=== PATIENT | male | born 1940 | race Caucasian/White ===

== ENCOUNTER 2018-02-25 08:29 | Inpatient (IN) | payer OTHER, MEDICARE ==
[2018-02-25] VITALS (7 sets, daily range): BP systolic 120–177; BP diastolic 70–553
[~2018-02-25] VITALS: Ht 182.9 cm; Wt 71.7 kg
--- NOTE | ~2018-02-25 | 2DMMODE ---
[facility] [employer] [place] [address] 2 D/M-MODE ECHOCARDIOGRAM Name: THOMAS LUDWIG Room #: 349-I [facility] IN [facility]#: [id number] Admission: 02/25/18 Attend Phys: Cyril Noriega Discharge: Date of : 36 Date of Service: 02/25/18 [facility] Report #: [id number] THIS REPORT FOR: //name// APPROVED REPORT Study performed: 02/25/2018 11:41:56 EXAM: Comprehensive 2D, Doppler, and color-flow Echocardiogram Patient Location: ER Room #: 1 Status: routine BSA: 1.89 HR: 87 bpm BP: 164/89 mmHg Other Information Study Quality: Good Indications COPD Dyspnea CAD ICD Echo Enhancing Agent Indication: Endocardial border delineation Agent(s) / Amount(s) Used: Optison 3 cc 2D Dimensions RVDd: 39.32 mm LVEF(%): 57.37 (>50%) IVSd: 9.61 (7-11mm) LVOT Diam: 24.92 (18-24mm) LVDd: 57.57 mm PWd: 11.28 (7-11mm) Ascending Ao: 31.71 (22-36mm) LVDs: 39.95 (25-40mm) Aortic Root: 28.77 mm IVC: 24.00 mm Alejandro's LVEF: 57.37 % Volumes Left Atrial Volume (Systole) Single Plane 4CH: 57.79 mL Single Plane 2CH: 59.51 mL LA ESV Index: 35.00 mL/m2 Aortic Valve AoV Peak Ciro.: 1.09 m/s AO Peak Gr.: 4.77 mmHg LVOT Max P.47 mmHg [facility] [address] [place] [address] 2 D/M-MODE ECHOCARDIOGRAM Name: THOMAS LUDWIG Room #: 349-I [facility]#: [id number] Admission: 02/25/18 Attend Phys: Cyril Noriega Discharge: Date of : 36 Date of Service: 02/25/18 1300 Report #: [id number] LVOT Max V: 0.79 m/s HAMZAH Vmax: 3.51 cm2 Mitral Valve E/A Ratio: 0.6 MV Decel. Time: 317.68 ms MV E Max Ciro.: 0.55 m/s MV A Ciro.: 0.92 m/s MV PHT: 92.13 ms IVRT: 175.32 ms Pulmonary Valve PV Peak Ciro.: 0.98 m/s PV Peak Gr.: 3.89 mmHg Pulmonary Vein P Vein S: 0.55 m/s P Vein A: 0.21 m/s P Vein D: 0.25 m/s P Vein A Dur.: 101.5 msec P Vein S/D Ratio: 2.20 Tricuspid Valve TR Peak Ciro.: 3.01 m/s TR Peak Gr.: 36.26 mmHg PA Pressure: 46.00 mmHg Left Ventricle Left ventricle is dilated. There is akinesis in the apical wall. There is normal left ventricular wall thickness. Left ventricular systolic function is moderately decreased. Distal septal and apical akinesis LVEF 35-40%. Grade I - abnormal relaxation pattern. Right Ventricle The right ventricle is normal size. The right ventricular systolic function is normal. Device lead is present in the right ventricle. Atria Left atrium is dilated. Right atrium is dilated. Device lead is present in the right atrium. Aortic Valve The aortic valve is normal in structure. No aortic regurgitation is present. There is no aortic valvular stenosis. Mitral Valve Mild mitral annular calcification Mild mitral regurgitation. No evidence of mitral valve stenosis. [facility] [address] [place] [address] 2 D/M-MODE ECHOCARDIOGRAM Name: VANITHOMAS Sourav Room #: 349-I [facility] IN ..#: [id number] Admission: 02/25/18 Attend Phys: Cyril Noriega Discharge: Date of : 36 Date of Service: 02/25/18 [facility] Report #: [id number] Tricuspid Valve The tricuspid valve is normal in structure. There is mild tricuspid regurgitation. Estimated PAP 45 mmHg. There is moderate pulmonary hypertension. Pulmonic Valve The pulmonary valve is normal in structure. Trace to mild pulmonic regurgitation. Great Vessels The aortic root is normal in size. IVC is dilated and collapses <50% with inspiration. Pericardium Trace pericardial effusion. <Conclusion> Left ventricular systolic function is moderately decreased. Distal septal and apical akinesis LVEF 35-40%. Mild diastolic dysfunction Both atria are mildly dilated. ICD wires in right heart The aortic valve is normal in structure. No aortic regurgitation or stenosis. Mild mitral annular calcification Mild mitral regurgitation. There is mild tricuspid regurgitation. Estimated pulmonary artery pressure of 45 mmHg. Trace pericardial effusion. <ELECTRONICALLY SIGNED> By: Bladimir Rocha MD, FACC 02/25/18 1300 1300 1300 Bladimir Rocha MD, FACC /INF
--- NOTE | ~2018-02-25 | EKG ---
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: nmd : 1940 Requested By: Flavio Garcia Order Number: [id number] MD: Bladimir Rocha Measurements Intervals [place] Rate: 79 P: 0 UT: 169 QRS: -88 QRSD: 143 T: 101 QT: 434 QTc: 498 Interpretive Statements Atrial-sensed ventricular-paced rhythm No further analysis attempted due to paced rhythm Baseline wander in lead(s) I,II,aVR Compared to ECG 09/29/2015 07:46:08 ventricular pacing is now present premature ventricular complexes are no longer present Electronically Signed On 02-26-2018 8:46:25 CDT by Bladimir Rocha [email or web address] <ELECTRONICALLY SIGNED> By: Bladimir Rocha MD, [facility] 02/26/18 0846 2 2 Bladimir Rocha MD, [facility] /EPI
[~2018-02-25 08:29] MED LIST: ASPIRIN EC81 M1 PO; AVELOX 400 MG400 MG PO; B COMPLEX1 EAC1 PO; BRILINTA90 MG PO; CARVEDILOL3.125 MG PO; COZAAR 25 MG TA25 M1 PO; HYDROCODONE-AP1 EAC6 PO; LIPITOR10 MG PO; LOPERAMIDE 2 MG2 M1 PO; LOVASTAT20 PO; MUCINEX TA600 MG/TA1 PO; PREDNISONE 5 MG5 M1 PO; PROAIR HFA8.5 GM INH; SPIRIVA INH; TAMSULOSIN HCL0.4 MG PO; TOPROL XL25 MG PO; VITAMIN B 12 PO; VITAMIN D1000 UNI1 PO; VITAMIN D31000 UNI2 PO
[2018-02-25 09:14] LABS: HEMATOCRIT 40.5 % (42.0-52.0); HEMOGLOBIN 13.6 gm/dL (14.0-18.0); MCH 31.9 pg (26.0-34.0); MCHC 33.5 g/dL (28.0-37.0); MCV 95.1 fL (80.0-100.0); RBC 4.25 mil/uL (4.50-6.00); WBC 6.7 thou/uL (4.0-11.0)
[2018-02-25 09:22] LABS: CALCIUM 8.6 mg/dL (8.5-10.1); CREATININE 1.6 mg/dL (0.7-1.3); POTASSIUM 4.7 mmol/L (3.5-5.1)
[2018-02-25 09:31] LABS: TROPONIN-I 0.07 ng/mL (<0.06)
[2018-02-25] MEDS ORDERED: LASIX 20 MG TAB20 MG PO (10:21)
[2018-02-26 04:00] VITALS: BP 138/74
[2018-02-26 08:05] VITALS: BP 137/67
[2018-02-26 12:00] VITALS: BP 96/48
[2018-02-26 12:47] LABS: ALBUMIN 3.5 g/dL (3.4-5.0); CALCIUM 8.5 mg/dL (8.5-10.1); CREATININE 1.5 mg/dL (0.7-1.3); POTASSIUM 4.7 mmol/L (3.5-5.1); TOTAL BILIRUBIN 0.6 mg/dL (<0.1-1.0)
[2018-02-26 16:47] VITALS: BP 125/75
[2018-02-26 19:04] VITALS: BP 116/59
[2018-02-27 03:45] VITALS: BP 142/78
[2018-02-27 05:56] LABS: MAGNESIUM 2.2 mg/dL (1.8-2.4); PHOSPHORUS 3.3 mg/dL (2.5-4.9)
[2018-02-27 07:25] VITALS: BP 154/76
[2018-02-27 18:35] VITALS: BP 129/60
[2018-02-27 20:00] VITALS: BP 129/63
[2018-02-28 04:00] VITALS: BP 155/75
[2018-02-28 08:04] VITALS: BP 150/77
[2018-02-28] MEDS ORDERED: LEVAQUIN 500 M500 M2 PO (08:52)
[2018-02-28] MEDS ORDERED: ELIQUIS5 MG PO (08:53)
[2018-02-28] MEDS ORDERED: CARVEDILOL25 MG PO (08:53)
[2018-02-28] MEDS ORDERED: PREDNISONE 5 MG5 M1 PO (08:53)
[2018-02-28 11:52] VITALS: BP 103/58
[2018-02-28 12:10] VITALS: BP 103/58
== END 2018-02-28 16:01 | disposition home or self-care (01) | DRG 189 ==
LOC: ER 08:29 → 3W 09:40 → EROBS 09:40 → 3W 11:37 → ENTRNSPT 02-28 15:41 → EDTRNSPTSTS 02-28 15:42 → 3W 02-28 16:01
PROVIDERS: Emergency Medicine; Hospitalist; Registered Nurse
DX: J96.01 Acute respiratory failure with hypoxia (principal); J44.1 Chronic obstructive pulmonary disease with (acute) exacerbation; J44.0 Chronic obstructive pulmonary disease with (acute) lower respiratory infection; I10 Essential (primary) hypertension; E78.5 Hyperlipidemia, unspecified; I25.5 Ischemic cardiomyopathy; I25.10 Atherosclerotic heart disease of native coronary artery without angina pectoris; I48.0 Paroxysmal atrial fibrillation; J20.9 Acute bronchitis, unspecified; Z91.041 Radiographic dye allergy status; Z91.013 Allergy to seafood; Z98.49 Cataract extraction status, unspecified eye; Z87.891 Personal history of nicotine dependence; Z79.82 Long term (current) use of aspirin; Z79.899 Other long term (current) drug therapy; Z86.73 Personal history of transient ischemic attack (TIA), and cerebral infarction without residual deficits; Z95.810 Presence of automatic (implantable) cardiac defibrillator
CPT/HCPCS: 10879

== ENCOUNTER 2018-03-20 13:15 | Emergency (ER) | payer OTHER, MEDICARE ==
[~2018-03-20] VITALS: Ht 180.3 cm; Wt 69.0 kg
[~2018-03-20 13:15] MED LIST changes: +CARVEDILOL25 MG PO; +ELIQUIS5 MG PO; +LASIX 20 MG TAB20 MG PO; +LEVAQUIN 500 M500 M2 PO
== END 2018-03-20 16:02 | disposition home or self-care (01) ==
LOC: ER 13:15
DX: R04.0 Epistaxis (principal); I63.9 Cerebral infarction, unspecified; F17.210 Nicotine dependence, cigarettes, uncomplicated; Z90.89 Acquired absence of other organs; Z88.8 Allergy status to other drugs, medicaments and biological substances; Z91.013 Allergy to seafood

== ENCOUNTER 2018-04-03 18:57 | Emergency (ER) | payer OTHER, MEDICARE ==
[~2018-04-03] VITALS: Ht 180.3 cm; Wt 68.0 kg
== END 2018-04-03 20:50 | disposition home or self-care (01) ==
LOC: ER 18:57
DX: R04.0 Epistaxis (principal); Z91.041 Radiographic dye allergy status; Z91.013 Allergy to seafood

== ENCOUNTER 2018-04-07 16:44 | Emergency (ER) | payer OTHER, MEDICARE ==
[~2018-04-07] VITALS: Ht 182.9 cm; Wt 69.0 kg
[2018-04-07 18:11] LABS: HEMATOCRIT 38.1 % (42.0-52.0); HEMOGLOBIN 12.6 gm/dL (14.0-18.0); MCH 31.2 pg (26.0-34.0); MCHC 33.1 g/dL (28.0-37.0); MCV 94.2 fL (80.0-100.0); PLATELET COUNT 184 thou/uL (150-400); RBC 4.05 mil/uL (4.50-6.00); RDW 14.5 % (10.5-14.5); WBC 8.3 thou/uL (4.0-11.0)
[2018-04-07 18:20] LABS: CALCIUM 9.2 mg/dL (8.5-10.1); CREATININE 1.7 mg/dL (0.7-1.3); POTASSIUM 4.3 mmol/L (3.5-5.1)
[2018-04-07 18:22] LABS: INR 1.5; PROTIME 15.1 Seconds (9.3-11.4)
[2018-04-07 18:25] LABS: ALBUMIN 3.6 g/dL (3.4-5.0); TOTAL BILIRUBIN 0.5 mg/dL (<0.1-1.0); TOTAL PROTEIN 7.4 g/dL (6.4-8.2)
[2018-04-07 18:34] LABS: ABSOLUTE NEUTROPHILS 5.9 thou/uL (1.4-8.2)
[2018-04-07 18:35] LABS: ANISOCYTOSIS 1+; LARGE PLATELETS OCCASIONAL; POLYCHROMASIA OCCASIONAL
[2018-04-07] MEDS ORDERED: HYDROCODONE-AP1 EAC6 PO (19:41)
[2018-04-07] MEDS ORDERED: KEFLEX500 M1 PO (19:41)
== END 2018-04-07 19:54 | disposition home or self-care (01) ==
LOC: ER 16:44
PROVIDERS: Physician Assistant
DX: R04.0 Epistaxis (principal); R79.1 Abnormal coagulation profile; Z86.73 Personal history of transient ischemic attack (TIA), and cerebral infarction without residual deficits; Z95.5 Presence of coronary angioplasty implant and graft; Z91.041 Radiographic dye allergy status; Z91.013 Allergy to seafood; Z90.89 Acquired absence of other organs

== ENCOUNTER 2019-07-25 10:26 | Inpatient (IN) | payer OTHER, MEDICARE ==
[~2019-07-25] VITALS: Ht 167.6 cm; Wt 70.8 kg
--- NOTE | ~2019-07-25 | EMS ---
[address] [address] EMS Patient Care Report Name: THOMAS LUDWIG Room #: PRE Luciano#: [id number] Admission: Attend Phys: Discharge: Date of : 36 Report #: [id number] THIS REPORT FOR: //name// Report Transmitted: 07/25/2019 10:00 EMS Care Summary [facility] MED-ACT Incident [id number] @ 07/25/2019 09:49 Incident Location [address] [place] [address] Patient THOMAS LUDWIG Male, 78 Years 1940 Patient Address [address] [place] [address] Patient History Chronic Obstructive Pulmonary Disease (COPD),Atrial Fibrillation, Patient Allergies Fish allergy,Shellfish allergy, Patient Medications Carvedilol, Losartan, Clopidogrel, Atorvastatin, Proair, Albuterol, Aspirin, Chief Complaint SOB Disposition Transported No Lights/[place] Reason Breathing Problem Transported To [facility] Narrative Pt stated he came home from [place] on Sunday after being gone for 3 months. Pt said he has had increased SOB since last week. Pt said his tax compliance officer called him today and told him he started having A Fib last Sunday and needs to be seen. Pt denied any chest pain. Pt said he has an unproductive cough but if he [address] [address] EMS Patient Care Report Name: THOMAS LUDWIG Room #: PRE GIOVANNA Wolf#: [id number] Admission: Attend Phys: Discharge: Date of : 36 Report #: [id number] coughs hard for about 30 minutes he will get a think yellow mucus up. Pt also said he is supposed to do an albuterol breathing tx everyday but he is only doing them maybe about once a week. Pt said he wears O2 at night but just started wearing it in the day due to his increased SOB. EMS arrived to find the pt sitting in the front passenger seat of the car. Pt was wearing a NC @ 4 lpm provided by [employer]. 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 Pt's family was going to take the pt POV but did not feel comfortable so they called 911. Pt was speaking in full sentences and appeared calm but was working harder to breath more than normal. Pt was able to stand with assistance and sit on cot, secured. Pt to MICU. No change in complaint en route. Pt remained speaking in full sentences but would have a deep rattling cough with no mucus. O2 increased to 6 lpm due to pt talking and SPO2 dropping. Biocom- no orders req/rec Pt to room 12, sheet slid to bed, verbal report to Staff Initial Vitals @10:14P: 103,BP: 137/83,Glucose: 179,SpO2: 95, @10:04P: 85,R: 20,BP: 138/81,Pain: 0/10,GCS: 15,SpO2: 96,Revised Trauma: 12,UT Suspected: false @10:16P: 95,BP: 140/84,SpO2: 95, @10:07P: 92,SpO2: 95,UT Suspected: false @PTAP: 81,R: 24,BP: 114/72,GCS: 15,SpO2: 83,Revised Trauma: 12, Assessments @10:00MENTAL:Person Oriented,Time Oriented,Place Oriented,Event Oriented,SKIN:HEENT:Head/Face: Other,Neck/Airway: No Abnormalities,LUNG SOUNDS:General: No Abnormalities,ABDOMEN:General: No Abnormalities,PELVIS//GI:No Abnormalities,EXTREMITIES:Left Leg: Edema,Right Leg: Edema,Left Arm: No Abnormalities,Right Arm: No Abnormalities,PULSE:NEURO:No Abnormalities, Impression Shortness of breath Procedures @10:0712-Lead ECGResponse: UnchangedSucceeded@10:08Saline Lock 10cc (18 ga) Site: Antecubital-LeftResponse: UnchangedSucceeded@PTAOxygen FlowRate: 4 Device: Nasal Cannula (NC) Response: ImprovedSucceeded Timeline ODD JOB WORKER,Oxygen FlowRate: 4 Device: Nasal Cannula (NC) Response: ImprovedSucceeded, ODD JOB WORKER,BP: 114/72 M,PULSE: 81,RR: 24 R,SPO2: 83 Ox,ETCO2: ,BG: ,PAIN: ,GCS: 15, 09:49,Call Received [facility] [address] [place] [address] EMS Patient Care Report Name: THOMAS LUDWIG Room #: PRE M.R.#: [id number] Admission: Attend Phys: Discharge: Date of : 36 Report #: [id number] 09:49,Psap Call 09:49,Dispatched 09:50,En Route 09:58,On Scene 09:59,At Patient 10:04,BP: 138/81 M,PULSE: 85,RR: 20 R,SPO2: 96 Ox,ETCO2: ,BG: ,PAIN: 0,GCS: 15, 10:07,12-Lead ECG,Response: UnchangedSucceeded, 10:07,BP: / M,PULSE: 92,RR: R,SPO2: 95 Ox,ETCO2: ,BG: ,PAIN: ,GCS: , 10:08,Saline Lock 10cc 18 ga Site: Antecubital-Left,Response: UnchangedSucceeded, 10:09,Depart Scene 10:14,BP: 137/83 M,PULSE: 103,RR: R,SPO2: 95 Ox,ETCO2: ,B,PAIN: ,GCS: , 10:16,BP: 140/84 M,PULSE: 95,RR: R,SPO2: 95 Ox,ETCO2: ,BG: ,PAIN: ,GCS: , 10:21,At Destination 10:40,Call Closed Disclaimer v1.1 Copyright 2019 [employer] This EMS Care Summary contains data elements from the applicable legal record (which may be displayed differently). It is designed to provide pertinent information for the following purposes: continuity of care, clinical quality, and state data reporting. The complete legal record is available to ED staff and administrators of the receiving hospital in [employer]'s Patient Tracker. All data is provided "as is."
[~2019-07-25 10:26] MED LIST changes: +ALLER-EASE180 MG PO; +BREO ELLIPTA 11 EACH INH; +KEFLEX500 M1 PO; +MUCINEX600 MG PO; +PREDNISONE 20 M20 M1 PO; +VITAMIN B-12500 MCG PO
[2019-07-25 10:42] LABS: ABSOLUTE NEUTROPHILS 6.1 thou/uL (1.4-8.2); BASOPHILS 0.8 % (0.0-2.0); EOSINOPHILS 1.2 % (0.0-3.0); HEMATOCRIT 42.2 % (42.0-52.0); LYMPHOCYTES 13.1 % (24.0-44.0); MCH 31.8 pg (26.0-34.0); MCHC 33.2 g/dL (28.0-37.0); MCV 95.9 fL (80.0-100.0); MONOCYTES 10.4 % (1.0-8.0); PLATELET COUNT 158 thou/uL (150-400); POLYS 74.5 % (36.0-66.0); RDW 16.3 % (10.5-14.5); WBC 8.2 thou/uL (4.0-11.0)
[2019-07-25 11:01] LABS: CALCIUM 8.6 mg/dL (8.5-10.1); CREATININE 1.6 mg/dL (0.7-1.3); POTASSIUM 4.7 mmol/L (3.5-5.1)
[2019-07-25 11:04] LABS: ALBUMIN 3.3 g/dL (3.4-5.0); MAGNESIUM 2.1 mg/dL (1.8-2.4); TOTAL BILIRUBIN 0.9 mg/dL (<0.1-1.0); TOTAL PROTEIN 5.9 g/dL (6.4-8.2); TROPONIN-I 0.14 ng/mL (<0.06)
[2019-07-25] MEDS ORDERED: PRADAXA150 MG PO (12:11)
[2019-07-25 13:28] VITALS: BP 111/80
--- NOTE | 2019-07-25 13:30 | EKG ---
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
[2019-07-25 13:57] VITALS: BP 110/80
[2019-07-25 14:45] VITALS: BP 107/68
--- NOTE | 2019-07-25 15:53 | 2DMMODE ---
[facility] [address] [place] [address] 2 D/M-MODE ECHOCARDIOGRAM Name: THOMAS LUDWIG Room #: 349-I ADM IN [facility]#: [id number] Admission: 07/25/19 Attend Phys: Diego Schwab MD Discharge: Date of : 36 Report #: [id number] THIS REPORT FOR: //name// APPROVED REPORT Study performed: 07/25/2019 15:10:01 EXAM: Comprehensive 2D, Doppler, and color-flow Echocardiogram Patient Location: Bedside Room #: 349 Status: routine BSA: 2.00 BP: 110/80 mmHg Rhythm: Atrial Fibrillation Other Information Study Quality: Good Indications Increased short of breath. Hx: ISCM, stents, ICD, Afib, COPD, HTN, HLP. Echo Enhancing Agent Indication: Rule out thrombus Agent(s) / Amount(s) Used: Optison 7 cc 2D Dimensions RVDd: 47.23 mm IVSd: 15.08 (7-11mm) LVOT Diam: 22.70 (18-24mm) LVDd: 44.34 mm PWd: 12.67 (7-11mm) LVDs: 36.51 (25-40mm) Aortic Root: 35.85 mm Volumes Left Atrial Volume (Systole) Single Plane 4CH: 82.76 mL Single Plane 2CH: 85.56 mL LA ESV Index: 44.00 mL/m2 Aortic Valve AoV Peak Crio.: 0.62 m/s AO Peak Gr.: 2.31 mmHg LVOT Max P.79 mmHg LVOT Max V: 0.44 m/s HAMZAH Vmax: 2.86 cm2 [facility] [address] [place] [address] 2 D/M-MODE ECHOCARDIOGRAM Name: THOMAS LUDWIG Room #: 349-I ADM IN [facility]#: [id number] Admission: 07/25/19 Attend Phys: Diego Schwab MD Discharge: Date of : 36 Report #: [id number] Mitral Valve MV Decel. Time: 172.45 ms MV E Max Ciro.: 0.79 m/s Pulmonary Valve PV Peak Ciro.: 0.50 m/s PV Peak Gr.: 1.00 mmHg Tricuspid Valve TR Peak Ciro.: 2.70 m/s RAP Estimate: 15.00 mmHg TR Peak Gr.: 30.00 mmHg PA Pressure: 45.00 mmHg Left Ventricle The left ventricle is normal size. Mild to moderate concentric left ventricular hypertrophy. Left ventricular systolic function is moderate to severely decreased. LVEF is 30-35%. This study is not technically sufficient to allow evaluation of the LV diastolic function. Right Ventricle Right ventricle is mildly dilated. Device lead is present in the right ventricle. Atria Left atrium is moderately dilated. Right atrium is severely dilated. Aortic Valve The aortic valve is normal in structure. Trace aortic regurgitation. There is no aortic valvular stenosis. Mitral Valve Mitral valve leaflets are calcified. Mild mitral annular calcification. Moderate mitral regurgitation. Tricuspid Valve The tricuspid valve is normal in structure. Moderate to severe tricuspid regurgitation. Estimated PAP is 40-45mmHg. Pulmonic Valve The pulmonary valve is normal in structure. Mild pulmonic regurgitation. Great Vessels The aortic root is normal in size. The ascending aorta is normal in [facility] [address] [place] [place] [address] 2 D/M-MODE ECHOCARDIOGRAM Name: THOMAS LUDWIG Room #: 349-I [facility] IN [facility]#: [id number] Admission: 07/25/19 Attend Phys: Diego Schwab MD Discharge: Date of : 36 Report #: [id number] size. IVC is dilated and collapses <50% with inspiration. Pericardium Small pericardial effusion. <Conclusion> The left ventricle is normal size. Mild to moderate concentric left ventricular hypertrophy. Left ventricular systolic function is moderate to severely decreased. Right ventricle is mildly dilated. Device lead is present in the right ventricle. Left atrium is moderately dilated. Right atrium is severely dilated. Trace aortic regurgitation. Moderate mitral regurgitation. Moderate to severe tricuspid regurgitation. Estimated PAP is 40-45mmHg. Small pericardial effusion. <ELECTRONICALLY SIGNED> By: Basilio Stephenson MD 07/25/19 1553 1553 1553 Basilio Stephenson MD /CLEVE
--- NOTE | 2019-07-25 17:02 | NUR ---
ASSUMED CARE OF PT ON ARRIVAL TO UNIT AT APPROX 1400. PT ON PRECAUTIONARY AIRBORNE PRECAUTIONS PER ER. CLARIFIED WITH INFECTIOUS DISEASE NURSE - IF PATIENT NOT REPORTING BLOOD SPUTUM, NIGHT SWEATS, WEIGHT LOSS, OR FEVERS - PATIENT MAY BE TAKEN OUT OF AIRBORNE PRECAUTIONS. ID CONSULTED TO SEE PATIENT.
[2019-07-25 17:34] LABS: URINE BILIRUBIN NEGATIVE (Negative); URINE BLOOD NEGATIVE (Negative); URINE CLARITY CLEAR; URINE COLOR YELLOW; URINE GLUCOSE-RANDOM* NEGATIVE (Negative); URINE KETONES NEGATIVE (Negative); URINE LEUKOCYTES-REFLEX NEGATIVE (Negative); URINE NITRITE-REFLEX NEGATIVE (Negative); URINE PROTEIN (DIPSTICK) NEGATIVE (Negative); URINE UROBILINOGEN 0.2 E.U./dl (0.2-1.0)
[2019-07-25 17:35] VITALS: BP 118/82
--- NOTE | 2019-07-25 18:06 | NUR ---
ASSUMED CARE OF PATIENT AT ADMISSION AROUND 1400. PATIENT ON 4 L NASAL CANNULA, WITH OXYGEN SATURATION IN 90'S. PATIENT HAD ECHO AND CARDIOLOGY CONSULT. PATIENT RECIEVED CARVEDILOL THIS AFTERNOON WELL 80MG OF LASIX.
[2019-07-25 20:00] VITALS: BP 102/78
[2019-07-26 01:06] LABS: GLYCOHEMOGLOBIN (HGB A1C) 6.2 % (4.8-5.6)
[2019-07-26 04:00] VITALS: BP 118/78
[2019-07-26 05:04] LABS: ABSOLUTE NEUTROPHILS 7.9 thou/uL (1.4-8.2); BASOPHILS 0.1 % (0.0-2.0); HEMATOCRIT 40.3 % (42.0-52.0); HEMOGLOBIN 13.3 gm/dL (14.0-18.0); LYMPHOCYTES 5.9 % (24.0-44.0); MCH 31.5 pg (26.0-34.0); MCHC 32.9 g/dL (28.0-37.0); MCV 95.6 fL (80.0-100.0); MONOCYTES 7.6 % (1.0-8.0); PLATELET COUNT 139 thou/uL (150-400); POLYS 86.4 % (36.0-66.0); RBC 4.21 mil/uL (4.50-6.00); RDW 15.6 % (10.5-14.5); WBC 9.2 thou/uL (4.0-11.0)
[2019-07-26 05:24] LABS: CALCIUM 8.6 mg/dL (8.5-10.1); CREATININE 1.6 mg/dL (0.7-1.3); MAGNESIUM 1.9 mg/dL (1.8-2.4)
--- NOTE | 2019-07-26 07:14 | NUR ---
PAITENT IS ALERT AND ORIENTED. PATIENT IS ON VENTI MASK 40%. PATIENT IS CONTIENT. PATIENT DENEIS PAIN. PATIENT IS SBA. PATIENT IS RESTING COMFORTALBY IN BED. WCM. PATIENT IS PRGRESSING TO GOALS.
[2019-07-26 07:40] VITALS: BP 129/72
[2019-07-26 16:20] VITALS: BP 110/81
--- NOTE | 2019-07-26 18:15 | NUR ---
ASSUMED CARE OF PATIENT AT 0700. PATIENT STABLE TODAY WITH GOOD OXYGEN SATURATION. PATIENT STANDBY ASSIST, USING URINAL IN BATHROOM, GET UP BY HIMSELF. PATIENT ON LASIX AND CONTINUES TO DIURES. PATIENT ON 3 L OXYGEN.
[2019-07-26 19:54] VITALS: BP 94/68
[2019-07-27 03:53] VITALS: BP 112/79
--- NOTE | 2019-07-27 05:29 | NUR ---
ASSUMED CARE OF PT AT 1900HRS. PT IS AOX4 WITH SOME CONFUSION AT NIGHT. O2 VIA VENTURI MASK CONTINUED. MASK AT 9L AND 35% Fi02. PT HAS FREQUENT VOIDING FREQUENCY AND SOME LEAKAGE. BRIEFS ON PER PT REQUEST. PT REPORTS THAT HE IS BREATHING BETTER. PT WAS ABLE TO SLEEP PART OF THE SHIFT. SO S/S OF ACUTE DISTRESS AND PROGRESSNG TOWARDS DC GOALS. WILL CONTINUE TO MONITOR.
[2019-07-27 07:08] VITALS: BP 117/66
[2019-07-27] MEDS ORDERED: LASIX 20 MG TAB20 MG PO (07:58)
[2019-07-27 15:43] VITALS: BP 106/75
--- NOTE | 2019-07-27 18:23 | NUR ---
PT REPORTS FEELING BETTER TODAY...DR ORDERED DIGOXIN RE HEART RATE WITH GOOD RESULTS OBTAINED...
[2019-07-27 20:07] VITALS: BP 115/59
[2019-07-28 00:45] VITALS: BP 115/59
[2019-07-28 04:16] VITALS: BP 138/77
--- NOTE | 2019-07-28 04:31 | NUR ---
PT UP AD KIM TO RESTROOM. PT HAS URINE AND BOWEL FREQUENCY. PT ALSO INSIST ON WEARING A BRIEF. PT IS SHOWING PERIODS OF VPACED WHILE RATES ARE STILL FLUCTUATING GREATLY SHOWED BY TELE MONITOR. FIRST DOSE OF IV DIG AT 2100. PT IS ON VENTI MASK. PT STATES NO OTHER PROBLEMS OR COMPLAINTS. HOURLY ROUNDING.
--- NOTE | 2019-07-28 04:43 | NUR ---
PT HAS BEEN NPO SINCE 2400 FOR AN IR BIOPSY THIS AM. BIPAP IN USE AND PT TOLERATING IT WELL OVER NIGHT. OTHERWISE PT IS ON 3l NC. PT HAS COMPLAINTS OF PAIN IN LOWER BACK. PUT LIDO PATCH ON THE LOWER LEFT BACK AND GAVE ORAL PAIN MEDICATION WITH PT STATING PAIN LEVEL HAS DECREASED TO A 2. CONSENT IS SIGNED FOR PROCEDURE TODAY AND IN THE CHART. HOURLY ROUNDING.
[2019-07-28 07:02] VITALS: BP 136/71
--- NOTE | 2019-07-28 10:09 | NUR ---
INITIAL ASSESSMENT: Pt evaluated for d/c planning needs. Reviewed chart and spoke with nurse and pt. Pt is alert and oriented. Pt lives in house with spouse and was independent with ADL's prior to admission to the hospital. Pt has home 02 ([employer]), nebulizer, walker and cane at home. Pt has had CHCS in the past. Pt remains active in the community and is still driving. Pt recently went to [place] for 100 days to celebrate his 57th anniversary. Pt plans on returning home on d/c from hospital. Will remain available to assist as needed.
[2019-07-28 11:46] LABS: CALCIUM 8.3 mg/dL (8.5-10.1); CREATININE 1.8 mg/dL (0.7-1.3); POTASSIUM 3.9 mmol/L (3.5-5.1)
[2019-07-28 16:24] VITALS: BP 109/59
[2019-07-28 19:06] VITALS: BP 94/52
[2019-07-29 04:29] VITALS: BP 98/58
[2019-07-29 08:20] VITALS: BP 99/77
[2019-07-29 13:16] LABS: CREATININE 1.7 mg/dL (0.7-1.3); POTASSIUM 3.9 mmol/L (3.5-5.1)
--- NOTE | 2019-07-29 14:20 | NUR ---
SW reviewed chart and spoke with nursing and attending physiican. GI consulted due to recurrent diarrhea. Awaiting c.diff results at this time. Pt with urinary retention and may need to be straight cathed. Plan is for pt to discharge home when medically stable. [place] is following to assist as needed with discharge planning.
[2019-07-29 15:33] VITALS: BP 109/61
--- NOTE | 2019-07-29 15:47 | NUR ---
Pt is friendly and cooperative. is at bedside. Unable to ambulate independently. Will use walker and gait belt and is x1 assist to get to a standing position. Pt tolerates standing but does show some L sided weakness. Used bedpan x3 today but no BM thus far. Last BM 07/24/19. Has kaufman and output is being monitored. Pt has fair appetite and eats independently. Pt complains periodically of buttock and hip pain. Repositioning and pillow wedges relieve the pain. Pt came from [facility] but refuses to return there upon discrahrge. Plan is to go to [facility] for around 2 weeks to get stronger. Plan is to discharge within a day or two. Pt is showing signs of progress and renal condition is being maintained and resolving. Pt shows progress of improving strength.
[2019-07-29 15:53] VITALS: BP 120/84
[2019-07-29 18:01] VITALS: BP 91/54
--- NOTE | 2019-07-29 18:20 | NUR ---
ASSUMED CARE OF PATIENT AT 0700. PATIENT ALERT AND ORIENTED X4. PATIENT REMAINED STABLE WITH OXYGEN SATURATION REMAINING HIGH THROUHOUT THE DAY. PATIENT OXYGEN SET TO 12 LITERS AT 35 % ON VENTI MASK. PATIENT TAKES MASK OFF OCCASIONALLY. PATIENT RETAINING URINE AND REQUIRES STRAIGHT CATHERIZATION WITH BLADDER SCANS.
[2019-07-29 19:17] VITALS: BP 101/57
[2019-07-30] VITALS (7 sets, daily range): BP systolic 91–128; BP diastolic 42–88
--- NOTE | 2019-07-30 05:24 | NUR ---
RESUMED CARE FOR PT AT 1845. SPOKE WITH PT ABOUT URINATION ISSUES AND THE START OF FLOMAX. PT IS PRODUCING ABOUT 100-200 Q4. VERY DARK RED AND SEEING SOME CLOTS. PT HAS COMPLAINTS THAT HIS BLADDER HURTS AND REQUEST TYLENOL FOR PAIN, WHICH HAS MANAGED THE PAIN WELL. NO OTHER COMPLAINTS. CALL LIGHT WITHIN REACH AND HOURLY ROUNDING.
[2019-07-30 05:38] LABS: CALCIUM 7.7 mg/dL (8.5-10.1); CREATININE 1.7 mg/dL (0.7-1.3); MAGNESIUM 1.9 mg/dL (1.8-2.4); POTASSIUM 4.7 mmol/L (3.5-5.1)
[2019-07-30] MEDS ORDERED: LASIX 20 MG TAB20 MG PO (11:42)
[2019-07-30] MEDS ORDERED: ACETAMINOPHEN325 M1 PO (11:42)
[2019-07-30] MEDS ORDERED: FLOMAX0.4 MG PO (11:42)
[2019-07-30] MEDS ORDERED: DIGOXIN125 MCG PO (11:42)
--- NOTE | 2019-07-30 13:23 | NUR ---
DISCHARGE NOTE: [place] reviewed chart and spoke with nursing and attending physician. Pt is medically stable for discharge home today. Physician recommends HH services. [place] met with pt at bedside to discuss discharge plan. Pt is aware of discharge and agreeable with discharge plan and having HH services. Options discussed for agencies. Pt has used [facility] in the past and is agreeable with using them again. [place] confirmed pt's home address and phone number. Pt's PCP is Dr. Henriquez. Pt's family will provide transportation home. [place] faxed clinical info and discharge orders/summary to [facility] and spoke with Mark in intake at [facility] to notify of new referral. Mark states they are able to accept pt on service. Contact info for [facility] placed in pt's discharge summary. [place] updated pt's nurse. No additional SW needs identified at this time, but is available to assist should needs arise.
--- NOTE | 2019-07-30 17:32 | NUR ---
ASSUMED CARE OF PT AT 0700. BREATHING MUCH IMPROVED. NOW C/O BLADDER DISTENTION. BLADDER SCAN SHOWING >900. STRAIGHT CATH BID PRN PER PHYSICIAN. DRAINED 900 CC OF BLOOD TINGED URINE THIS AM. DOSE OF FLOMAX INCREASED. STILL CONT TO RETAIN. INCREASED RESISTANCE DESPITE USING COUDET. PHYSICIAN AWARE. CHILD DEVELOPMENT INSTRUCTOR MADE ATTEMPT W/O SUCCESS. PATIENT TO TRANSFER TO [facility] FOR URGENT UROLOGY CONSULTATION. VITALS STABLE. PATIENT UNDERSTANDING AND AGREEABLE.
--- NOTE | 2019-07-30 22:20 | NUR ---
ASSUMED CARE OF PATIENT AT 1900. ORDERS TO TRANSFER TO [facility] BEING COMPLETED, BLADDER SCANNED PATIENT, SHOWED GREATER THAN 1000 ML. UNABLE TO VOID. REPORT GIVEN TO KARLOS AT [facility]. PATIENT RESTING AT THIS TIME. AWAITING TRANSPORT AT THIS TIME.
[2019-08-13] MEDS ORDERED: PROAIR HFA8.5 GM INH (08:19)
[2019-08-13] MEDS ORDERED: TRELEGY ELLIPT1 EACH INH (08:19)
[2019-08-13] MEDS ORDERED: VITAMIN B-121000 MC2 PO (08:20)
[2019-08-13] MEDS ORDERED: AMIODARONE HCL400 MG PO (08:22)
== END 2019-07-30 23:12 | disposition home health service (06) | DRG 291 ==
LOC: ER 10:26 → EROBS 13:30 → 3W 13:30
PROVIDERS: Emergency Medicine; Internal Medicine; Nurse Practitioner; ADMIT Hospitalist
PROC: 5A09357 Assistance with Respiratory Ventilation, Less than 24 Consecutive Hours, Continuous Positive Airway Pressure (ICD-10-PCS; principal; 2019-07-26)
PROC: 5A09357 Assistance with Respiratory Ventilation, Less than 24 Consecutive Hours, Continuous Positive Airway Pressure (ICD-10-PCS; 2019-07-27)
DX: I13.0 Hypertensive heart and chronic kidney disease with heart failure and stage 1 through stage 4 chronic kidney disease, or unspecified chronic kidney disease (principal); I50.43 Acute on chronic combined systolic (congestive) and diastolic (congestive) heart failure; J96.21 Acute and chronic respiratory failure with hypoxia; J18.9 Pneumonia, unspecified organism; N17.9 Acute kidney failure, unspecified; J44.1 Chronic obstructive pulmonary disease with (acute) exacerbation; J44.0 Chronic obstructive pulmonary disease with (acute) lower respiratory infection; N18.9 Chronic kidney disease, unspecified; R19.7 Diarrhea, unspecified; R33.9 Retention of urine, unspecified; I25.5 Ischemic cardiomyopathy; I25.10 Atherosclerotic heart disease of native coronary artery without angina pectoris; E78.5 Hyperlipidemia, unspecified; I48.91 Unspecified atrial fibrillation; I08.3 Combined rheumatic disorders of mitral, aortic and tricuspid valves; Z91.041 Radiographic dye allergy status; Z79.899 Other long term (current) drug therapy; Z91.013 Allergy to seafood; Z86.73 Personal history of transient ischemic attack (TIA), and cerebral infarction without residual deficits; Z79.82 Long term (current) use of aspirin; Z95.810 Presence of automatic (implantable) cardiac defibrillator; Z99.81 Dependence on supplemental oxygen; Z95.5 Presence of coronary angioplasty implant and graft
CPT/HCPCS: 10879

== ENCOUNTER → 2019-08-13 | Outpatient (CLI) | payer OTHER, MEDICARE ==
[~2019-08-13] VITALS: Ht 180.3 cm; Wt 70.3 kg
[~2019-08-13] MED LIST changes: +ACETAMINOPHEN325 M1 PO; +AMIODARONE HCL400 MG PO; +COREG6.25 MG PO; +DIGOXIN125 MCG PO; +FLOMAX0.4 MG PO; +LEVAQUIN 750 M750 MG PO; +PRADAXA150 MG PO; +PREDNISONE 10 M10 MG PO; +TRELEGY ELLIPT1 EACH INH; +VITAMIN B-121000 MC2 PO
[2019-08-13 07:34] LABS: BASOPHILS 1.4 % (0.0-2.0); EOSINOPHILS 1.9 % (0.0-3.0); HEMATOCRIT 42.4 % (42.0-52.0); HEMOGLOBIN 13.7 gm/dL (14.0-18.0); MCH 31.2 pg (26.0-34.0); MCHC 32.4 g/dL (28.0-37.0); MCV 96.3 fL (80.0-100.0); MONOCYTES 7.2 % (1.0-8.0); PLATELET COUNT 220 thou/uL (150-400); POLYS 76.5 % (36.0-66.0); RDW 15.4 % (10.5-14.5); WBC 7.9 thou/uL (4.0-11.0)
[2019-08-13 07:39] LABS: CALCIUM 8.5 mg/dL (8.5-10.1); CREATININE 1.3 mg/dL (0.7-1.3); POTASSIUM 4.7 mmol/L (3.5-5.1)
[2019-08-13 07:47] LABS: ALBUMIN 3.3 g/dL (3.4-5.0); TOTAL BILIRUBIN 0.8 mg/dL (<0.1-1.0); TOTAL PROTEIN 6.6 g/dL (6.4-8.2)
[2019-08-13 07:52] VITALS: BP 143/106
[2019-08-13 08:10] LABS: INR 1.6; PROTIME 16.3 Seconds (9.3-11.4)
[2019-08-13 08:12] LABS: APTT 57.6 Seconds (24.5-32.8)
--- NOTE | 2019-08-14 11:39 | P ---
[facility] [place] [address] PROCEDURE REPORT Name: THOMAS LUDWIG Room #: [facility]#: [id number] Admission: 08/13/19 Attend Phys: Giovany Vance MD Discharge: Date of : 36 Report #: [id number] THIS REPORT FOR: //name// CC: Giovany Henriquez DATE OF SERVICE: 08/13/2019 CARDIOVERSION PREOPERATIVE DIAGNOSIS: Atrial fibrillation. POSTOPERATIVE DIAGNOSIS: Atrial fibrillation. PROCEDURE PERFORMED: 1. DC cardioversion. 2. ICD reprogramming. DESCRIPTION OF THE PROCDURE: The patient was prepped in a standard fashion. His device was interrogated prior to the procedure showing that he was in atrial fibrillation. The patient was sedated by the Anesthesiology service and I underwent a 200 joule synchronized cardioversion with yarsani of sinus rhythm. We made some programming changes to his atrial lead sensitivity to hopefully prevent undersensing in the future. CONCLUSIONS: 1. Successful DC cardioversion. 2. Successful ICD reprogramming. <ELECTRONICALLY SIGNED> By: Giovany Vance MD 08/14/19 1139 1711 0624 Giovany Vance MD /nt
== END | disposition home or self-care (01) ==
LOC: CATH 06:16
PROVIDERS: Internal Medicine Cardiovascular Disease
DX: I48.91 Unspecified atrial fibrillation (principal); I42.9 Cardiomyopathy, unspecified; I11.0 Hypertensive heart disease with heart failure; I50.9 Heart failure, unspecified; I25.10 Atherosclerotic heart disease of native coronary artery without angina pectoris; E78.5 Hyperlipidemia, unspecified; J44.9 Chronic obstructive pulmonary disease, unspecified; Z79.01 Long term (current) use of anticoagulants; Z86.73 Personal history of transient ischemic attack (TIA), and cerebral infarction without residual deficits; Z85.828 Personal history of other malignant neoplasm of skin; Z87.891 Personal history of nicotine dependence; Z98.890 Other specified postprocedural states; Z79.899 Other long term (current) drug therapy; Z91.041 Radiographic dye allergy status; Z79.82 Long term (current) use of aspirin
CPT/HCPCS: 62110; 62900

== ENCOUNTER 2019-08-27 08:59 | Inpatient (IN) | payer OTHER, MEDICARE ==
[~2019-08-27] VITALS: Ht 180.3 cm; Wt 67.6 kg
--- NOTE | ~2019-08-27 | EMS ---
[facility] [address] [place] [address] EMS Patient Care Report Name: THOMAS LUDWIG Room #: REG GIOVANNA Wolf#: [id number] Admission: 08/27/19 Attend Phys: Discharge: Date of : 36 Report #: [id number] THIS REPORT FOR: //name// Report Transmitted: 08/27/2019 09:56 EMS Care Summary [facility] MED-ACT Incident [id number] @ 08/27/2019 08:22 Incident Location [address] [place] [address] Patient THOMAS LUDWIG Male, 79 Years 1940 Patient Address [address] [place] [address] Patient History Chronic Obstructive Pulmonary Disease (COPD),Pacemaker/AICD,Pneumonia,Atrial Fibrillation,Myocardial Infarction (FL), Patient Allergies No known allergies,Fish allergy,Shellfish allergy, Patient Medications Albuterol, Aspirin, Losartan, Proair, Clopidogrel, Carvedilol, Atorvastatin, Chief Complaint SOB Disposition Transported No Lights/[place] Reason Breathing Problem Transported To [facility] Narrative Arrive to find pt sitting upright on the edge of the couch leaning slightly forward in his home. Pt reports that he is SOB. Pt says that he has two types of pneumonia and went to the ER last month for the same thing. Pt says he is on [facility] [address] [place] [address] EMS Patient Care Report Name: THOMAS LUDWIG Room #: REG ER Luciano#: [id number] Admission: 08/27/19 Attend Phys: Discharge: Date of : 36 Report #: [id number] O2 at 4L every night. Pt says this morning he took his O2 off and got out of bed and was getting ready for the day and got SOB which prompted him to put on his SPO2 sensor and when his readings dropped from mid 80's to mid 70's he called 911. Pt says he has had his productive cough since last month. Pt denies any CP, N/V, fever or any other problems. Pt is placed on O2 and says he feels better and still wants to go to the ER. Pt is helped to the cot which is at the front door and secured, taken to ambulance. VS and ECG monitored and biocom to [place] with no orders and tx without incident. Pt taken to ER room 2 and report to RN at bedside and care transferred. Pt says his breathing is much better and he feels pretty good now. Initial Vitals @08:39P: 76,SpO2: 93, @08:34P: 62,SpO2: 89, @08:44P: 95,R: 18,BP: 152/71,Pain: 0/10,GCS: 15,SpO2: 97,Revised Trauma: 12,FL Suspected: false @08:30P: 74,R: 20,BP: 136/64,Pain: 0/10,GCS: 15,SpO2: 79,Revised Trauma: 12, Assessments @08:31MENTAL:Person Oriented,Time Oriented,Event Oriented,Place Oriented,SKIN:HEENT:Head/Face: No Abnormalities,Neck/Airway: No Abnormalities,LUNG SOUNDS:General: No Abnormalities,ABDOMEN:General: No Abnormalities,PELVIS//GI:EXTREMITIES:Left Arm: No Abnormalities,Right Arm: No Abnormalities,Left Leg: No Abnormalities,Right Leg: No Abnormalities,PULSE:NEURO:No Abnormalities, Impression Shortness of breath Procedures @08:30Oxygen FlowRate: 6 Device: Nasal Cannula (NC) Response: UnchangedSucceeded@08:34Oxygen FlowRate: 10 Device: Non Re-breather Mask (NRB) Response: UnchangedSucceeded Timeline 08:21,Call Received 08:21,Psap Call 08:22,Dispatched 08:22,En Route 08:28,On Scene 08:29,At Patient 08:30,Oxygen FlowRate: 6 Device: Nasal Cannula (NC) Response: UnchangedSucceeded, [facility] [address] [place] [address] EMS Patient Care Report Name: THOMAS LUDWIG Room #: REG ER Luciano#: [id number] Admission: 08/27/19 Attend Phys: Discharge: Date of : 36 Report #: [id number] 08:30,BP: 136/64 M,PULSE: 74,RR: 20 R,SPO2: 79 Ox,ETCO2: ,BG: ,PAIN: 0,GCS: 15, 08:34,Oxygen FlowRate: 10 Device: Non Re-breather Mask (NRB) Response: UnchangedSucceeded, 08:34,BP: / M,PULSE: 62,RR: R,SPO2: 89 Ox,ETCO2: ,BG: ,PAIN: ,GCS: , 08:39,BP: / M,PULSE: 76,RR: R,SPO2: 93 Ox,ETCO2: ,BG: ,PAIN: ,GCS: , 08:39,Depart Scene 08:44,BP: 152/71 M,PULSE: 95,RR: 18 R,SPO2: 97 Ox,ETCO2: ,BG: ,PAIN: 0,GCS: 15, 08:51,At Destination 09:04,Call Closed Disclaimer v1.1 Copyright 2019 [employer] This EMS Care Summary contains data elements from the applicable legal record (which may be displayed differently). It is designed to provide pertinent information for the following purposes: continuity of care, clinical quality, and state data reporting. The complete legal record is available to ED staff and administrators of the receiving hospital in ES's Patient Tracker. All data is provided "as is."
[~2019-08-27 08:59] MED LIST changes: -COREG6.25 MG PO; -LEVAQUIN 750 M750 MG PO; -PREDNISONE 10 M10 MG PO
[2019-08-27 09:17] VITALS: BP 113/62
[2019-08-27 09:25] LABS: ABSOLUTE NEUTROPHILS 12.2 thou/uL (1.4-8.2); BASOPHILS 0.2 % (0.0-2.0); HEMATOCRIT 36.2 % (42.0-52.0); HEMOGLOBIN 11.7 gm/dL (14.0-18.0); LYMPHOCYTES 4.4 % (24.0-44.0); MCH 30.7 pg (26.0-34.0); MCHC 32.3 g/dL (28.0-37.0); MCV 95.2 fL (80.0-100.0); MONOCYTES 9.2 % (1.0-8.0); PLATELET COUNT 124 thou/uL (150-400); POLYS 86.2 % (36.0-66.0); RDW 15.2 % (10.5-14.5); WBC 14.1 thou/uL (4.0-11.0)
[2019-08-27 09:28] LABS: BE(vivo) -2.8 mmol/L (-2 to +3); HCO3 20.5 mmol/L (22.0-26.0); PCO2 31.1 mmHg (35.0-45.0); PO2 135.4 mmHg (80.0-100.0); pH 7.437 (7.360-7.450); sO2 98.8 % (92.0-98.0)
[2019-08-27 09:35] LABS: CALCIUM 9.1 mg/dL (8.5-10.1); CREATININE 1.5 mg/dL (0.7-1.3); POTASSIUM 4.5 mmol/L (3.5-5.1)
[2019-08-27 09:43] LABS: TROPONIN-I 0.28 ng/mL (<0.06)
[2019-08-27 17:57] VITALS: BP 96/33
--- NOTE | 2019-08-27 18:35 | NUR ---
Pt admitted to room 218 from the emergeny room. Assisted to bed and oriented to the call light. Pt called his to give her his room number. Pt has Oxygen mask in place with 12 liter high flow oxygen. Lungs clear/diminished. AV paced rhythm. Assisted into bed and personal belongings placed on overbed table and window ledge. Admission Hx and assessment to be done by oncoming RN. Bed alarm activated and yellow socks for fall precautions placed on patient.
[2019-08-27 18:36] VITALS: BP 120/40
[2019-08-27 19:33] VITALS: BP 111/61
[2019-08-27 23:46] VITALS: BP 93/43
[2019-08-28 05:25] LABS: ABSOLUTE NEUTROPHILS 9.7 thou/uL (1.4-8.2); BASOPHILS 0.5 % (0.0-2.0); HEMATOCRIT 31.9 % (42.0-52.0); HEMOGLOBIN 10.5 gm/dL (14.0-18.0); MCH 31.2 pg (26.0-34.0); MCHC 32.8 g/dL (28.0-37.0); MCV 95.1 fL (80.0-100.0); PLATELET COUNT 121 thou/uL (150-400); POLYS 91.5 % (36.0-66.0); RBC 3.36 mil/uL (4.50-6.00); RDW 15.2 % (10.5-14.5); WBC 10.6 thou/uL (4.0-11.0)
[2019-08-28 05:31] VITALS: BP 120/60
[2019-08-28 05:40] LABS: CALCIUM 8.5 mg/dL (8.5-10.1); CREATININE 1.3 mg/dL (0.7-1.3); MAGNESIUM 1.8 mg/dL (1.8-2.4); POTASSIUM 4.2 mmol/L (3.5-5.1)
--- NOTE | 2019-08-28 07:26 | NUR ---
ASSUMED PT CARE AT 1900, VSS, PT A&0X4. AFIB ON THE MONITOR BUT AV PACED AND CONTROLLED. ADMITTED FROM ER LAST NIGHT. PT SLEPT WELL ALL NIGHT, NO COMPLIANTS OF PAIN OR DISCOMFORT. BREATHING WELL WITH MASK. WILL CONTINUE TO MONITOR PER POC.
[2019-08-28 08:02] VITALS: BP 138/66
--- NOTE | 2019-08-28 08:32 | EKG ---
[place] [address] [facility] [place] [address] ELECTROCARDIOGRAM REPORT Name: THOMAS LUDWIG Room #: 218-P ADM IN M.R.#: [id number] Admission: 08/27/19 Attend Phys: Trae Corrales MD Discharge: Date of : 36 Report #: [id number] THIS REPORT FOR: //name// [facility] ED Test Date: 2019-08-27 Test Time: 09:11:02 Pat Name: THOMAS LUDWIG Department: Room: 218 Gender: M Behaviorist: JNGUM : 1940 Requested By: Juan Jose Devries Order Number: [id number] MD: Bladimir Rocha Measurements Intervals [place] Rate: 63 P: 0 IL: 160 QRS: -86 QRSD: 170 T: 105 QT: 453 QTc: 464 Interpretive Statements A-V dual-paced complexes w/ some inhibition No further analysis attempted due to paced rhythm Compared to ECG 07/25/2019 11:11:20 Atrial flutter no longer present Electronically Signed On 08-28-2019 8:32:18 CDT by Bladimir Rocha [email or web address] <ELECTRONICALLY SIGNED> By: Bladimir Rocha MD, [facility] 08/28/19 0832 0 Bladimir Rocha MD, [facility] /EPI
--- NOTE | 2019-08-28 08:50 | EKG ---
[place] [address] [facility] [place] [address] ELECTROCARDIOGRAM REPORT Name: THOMAS LUDWIG Room #: 218-P ADM IN M.R.#: [id number] Admission: 08/27/19 Attend Phys: Trae Corrales MD Discharge: Date of : 36 Report #: [id number] THIS REPORT FOR: //name// [facility] Test Date: 2019-08-28 Test Time: 08:31:34 Pat Name: THOMAS LUDWIG Department: Room: 218 P Gender: M Forestry Scientist: MOUSTAPHA : 1940 Requested By: Bladimir Rocha Order Number: [id number] MD: Bladimir Rocha Measurements Intervals [place] Rate: 62 P: 102 LA: 65 QRS: 142 QRSD: 155 T: 118 QT: 508 QTc: 516 Interpretive Statements Ventricular-paced rhythm No further analysis attempted due to paced rhythm Compared to ECG 08/27/2019 09:11:02 No significant changes Electronically Signed On 08-28-2019 8:50:28 CDT by Bladimir Rocha [email or web address] <ELECTRONICALLY SIGNED> By: Bladimir Rocha MD, [facility] 08/28/19 0850 0 0 Bladimir Rocha MD, [facility] /EPI
[2019-08-28 12:01] VITALS: BP 117/53
--- NOTE | 2019-08-28 16:29 | NUR ---
INITIAL ASSESSMENT: SW reviewed chart and spoke with nursing and attending physician. Pt was admitted from home due to exacerbation of COPD. Pt was recently at [facility] and transferred to [facility] on 07/30 for urology services. SW met with pt at bedside. Introduced role of SW. Pt is alert/orientated x 4. Pt reports he lives at home with his , who is in good health and able to assist pt as needed. Pt is independent with ADLs. Pt has a cane, walker and nebulizer. Pt has home O2 in place through [facility]. Pt has used [facility] in the past for HH and states he does not feel that he needs HH when discharged. Pt's PCP is Dr. Henriquez. Plan is for pt to discharge home when medically stable. SW is following to assist as needed with discharge planning.
[2019-08-28 16:59] VITALS: BP 114/60
--- NOTE | 2019-08-28 17:53 | NUR ---
ASSUMED CARE AT 0700, SHIFT ASSESSMENT DONE, MEDS GIVEN, VSS. ON FACE MASK, 8L NC. UP WITH STANDBY, USING THE URINAL. AV PACED ON THE MONITOR. WILL CONTINUE TO ASSESS AND ASSIST WITH ADLs NEEDED.
[2019-08-28 20:36] VITALS: BP 121/72
[2019-08-28 20:46] VITALS: BP 161/99
[2019-08-29 03:46] VITALS: BP 138/63
--- NOTE | 2019-08-29 05:50 | NUR ---
ASSUMED PT CARE AT 1900. PT A/OX4, VITAL SIGNS STABLE. NO COMPLAINTS OF PAIN, NO COMPLAINTS OF SOB, ON 8L O2 VIA FACE MASK.ASSESSMENT CHARTED. NO ACUTE CHANGES, PT RESTED WELL THROUGH THE NIGHT. PROGRESSING TOWARD PLAN OF CARE. WILL CONTINUE TO MONITOR.
[2019-08-29 08:00] VITALS: BP 1123/49
[2019-08-29 10:51] LABS: HEMOGLOBIN 11.3 gm/dL (14.0-18.0); MCH 30.3 pg (26.0-34.0); MCHC 31.5 g/dL (28.0-37.0); MCV 96.3 fL (80.0-100.0); RBC 3.74 mil/uL (4.50-6.00); RDW 15.5 % (10.5-14.5); WBC 11.9 thou/uL (4.0-11.0)
[2019-08-29 10:59] LABS: CALCIUM 8.6 mg/dL (8.5-10.1); CREATININE 1.7 mg/dL (0.7-1.3); MAGNESIUM 1.8 mg/dL (1.8-2.4); POTASSIUM 3.8 mmol/L (3.5-5.1)
[2019-08-29 12:00] VITALS: BP 133/60
[2019-08-29 16:00] VITALS: BP 136/75
[2019-08-29 19:56] VITALS: BP 125/88
--- NOTE | 2019-08-29 20:07 | NUR ---
ASSUMED CARE OF PT AT SHIFT CHANGE. ASSESSMENTS CHARTED. MEDS GIVEN PER DEC. VSS. A&OX4. USED URINAL AT BEDSIDE. WORKED WITH PT TODAY. ON 6-8L MASK. PLAN IS CONTINUE CARE AND WEAN O2 BACK TO [place], 4L. WILL CONTINUE TO MONITOR AND FOLLOW POC.
[2019-08-30 04:28] VITALS: BP 148/76
[2019-08-30 07:15] VITALS: BP 134/63
--- NOTE | 2019-08-30 07:44 | NUR ---
PT RESTING QUIETLY THRU THE NOC WITH HF O2 MASK, MEDS GIVEN WITH APPLE SAUCE, NO C/O PAIN, VOIDS PER URINAL, WILL CON'T TO MONITOR PER PPOC.
[2019-08-30 11:38] VITALS: BP 138/71
[2019-08-30 16:31] VITALS: BP 122/63
--- NOTE | 2019-08-30 16:59 | NUR ---
ASSUMED CARE OF PT AT SHIFT CHANGE. ASSESSMENTS CHARTED. MEDS GIVEN PER DEC. VSS. A&OX4. NO C/O PAIN. ON 6L O2, SATTING IN 90S. PT STEADY ON FEET. RECOMMENDS MORE ACTIVITY, PATIENT EAGER TO WALK AND GET STRONGER. CODE STATUS CHANGED TO NO CODE. PLAN TO CONTINUE ABX AND GAIN STRENGTH WITH POSSIBLE DC ON SUNDAY. WILL CONTINUE TO MONITOR AND FOLLOW POC.
[2019-08-30 20:08] VITALS: BP 147/64
--- NOTE | 2019-08-31 05:44 | NUR ---
PT RESTING QUIETLY IN ROOM, NO C/O PAIN, VSS, ASSISTED PT WITH BATH AT THE SINK LAST NOC, O2 WITH HF FACE MASK, MEDS WITH APPLESAUSE, COMPLIANT WITH FR, WILL CON'T TO MONITOR PER PPOC.
[2019-08-31 05:49] VITALS: BP 143/77
[2019-08-31 09:38] VITALS: BP 127/61
[2019-08-31 11:32] LABS: HEMATOCRIT 34.7 % (42.0-52.0); HEMOGLOBIN 11.4 gm/dL (14.0-18.0); MCH 31.2 pg (26.0-34.0); MCHC 32.7 g/dL (28.0-37.0); MCV 95.1 fL (80.0-100.0); RBC 3.65 mil/uL (4.50-6.00); RDW 14.5 % (10.5-14.5); WBC 9.6 thou/uL (4.0-11.0)
[2019-08-31 11:49] LABS: CALCIUM 8.2 mg/dL (8.5-10.1); CREATININE 1.6 mg/dL (0.7-1.3); MAGNESIUM 1.8 mg/dL (1.8-2.4); POTASSIUM 3.4 mmol/L (3.5-5.1)
[2019-08-31 13:00] VITALS: BP 128/67
[2019-08-31 16:10] VITALS: BP 124/64
[2019-08-31 19:49] VITALS: BP 119/53
[2019-09-01 04:34] VITALS: BP 149/76
[2019-09-01 08:02] VITALS: BP 139/72
[2019-09-01 11:55] VITALS: BP 138/72
--- NOTE | 2019-09-01 12:50 | NUR ---
ASSUMED CARE AT 0700, SHIFT ASSESSMENT DONE, MEDS GIVEN, VSS. DENIES PAIN, NAUSEA, VOMITING. BREATHING BETTER. UP WITH STANDBY. AVPACED ON THE MONITOR. WALKED AROUND THE UNIT ONCE, WAS SOB FOR A A LITTLE BIT. WILL CONTINUE TO ASSESS AND ASSIST WITH ADLs NEEDED.
[2019-09-01] MEDS ORDERED: COREG6.25 MG PO (12:58)
[2019-09-01] MEDS ORDERED: PRADAXA150 MG PO (12:58)
[2019-09-01] MEDS ORDERED: PREDNISONE 10 M10 MG PO (12:59)
[2019-09-01] MEDS ORDERED: MUCINEX600 MG PO (12:59)
[2019-09-01] MEDS ORDERED: LEVAQUIN 750 M750 MG PO (13:01)
[2019-09-01] MEDS ORDERED: SPIRIVA INH (13:03)
[2019-09-01 15:28] VITALS: BP 138/72
--- NOTE | 2019-09-01 16:52 | NUR ---
[facility] DAYTIME O2 TANK SPOKE WITH [employer] IN INTAKE AND THEY RECEIVED REFERRAL THEY HAVE ALREADY BEEN WORKING WITH PT THEY SAID HIS INSURANCE HAS ALREADY APPROVED HIS O2 TANK AND IT'S BEEN SHIPPED ON 08/28 SHOULD BE AT HIS HOME ANY DAY.
== END 2019-09-01 15:45 | disposition home or self-care (01) | DRG 208 ==
LOC: ER 08:59 → 2N 14:40 → EROBS 14:40 → 2N 18:35 → ENTRNSPT 09-01 15:52 → EDTRNSPTSTS 09-01 15:56
PROVIDERS: Emergency Medicine; Nurse Practitioner; ADMIT Internal Medicine
DX: J18.9 Pneumonia, unspecified organism (principal); J96.21 Acute and chronic respiratory failure with hypoxia; N17.9 Acute kidney failure, unspecified; I50.22 Chronic systolic (congestive) heart failure; E44.0 Moderate protein-calorie malnutrition; N18.4 Chronic kidney disease, stage 4 (severe); I13.0 Hypertensive heart and chronic kidney disease with heart failure and stage 1 through stage 4 chronic kidney disease, or unspecified chronic kidney disease; E78.5 Hyperlipidemia, unspecified; I25.5 Ischemic cardiomyopathy; I25.10 Atherosclerotic heart disease of native coronary artery without angina pectoris; K52.9 Noninfective gastroenteritis and colitis, unspecified; K86.89 Other specified diseases of pancreas; I48.0 Paroxysmal atrial fibrillation; G47.00 Insomnia, unspecified; R63.4 Abnormal weight loss; N40.1 Benign prostatic hyperplasia with lower urinary tract symptoms; R33.8 Other retention of urine; R13.10 Dysphagia, unspecified; J43.9 Emphysema, unspecified; Y95 Nosocomial condition; Z91.041 Radiographic dye allergy status; Z86.73 Personal history of transient ischemic attack (TIA), and cerebral infarction without residual deficits; Z91.013 Allergy to seafood; Z95.5 Presence of coronary angioplasty implant and graft; Z82.61 Family history of arthritis; Z82.3 Family history of stroke; Z81.8 Family history of other mental and behavioral disorders; Z87.891 Personal history of nicotine dependence; Z95.810 Presence of automatic (implantable) cardiac defibrillator; Z99.81 Dependence on supplemental oxygen; Z68.20 Body mass index [BMI] 20.0-20.9, adult; Z79.82 Long term (current) use of aspirin; Z79.899 Other long term (current) drug therapy
CPT/HCPCS: 10081